=== PATIENT | female | born 1955 | race Caucasian/White ===

== ENCOUNTER 2018-05-03 17:57 | Emergency (ER) | payer MEDICAID ==
[~2018-05-03] VITALS: Ht 177.8 cm; Wt 68.2 kg
[2018-05-03 18:12] VITALS: Ht 177.8 cm; Wt 68.2 kg
[2018-05-03] MEDS ORDERED: CLARITIN 10 MG10 MG PO (18:14)
[2018-05-03 19:04] VITALS: BP 163/97
[2018-05-03] MEDS ORDERED: DOXYCYCLINE HY100 M2 PO (19:20)
[2018-05-03] MEDS ORDERED: TORADOL10 MG PO (19:20)
== END 2018-05-03 19:00 | disposition home or self-care (01) ==
LOC: D.ER 17:57
DX: T63.461A Toxic effect of venom of wasps, accidental (unintentional), initial encounter (principal); Z86.73 Personal history of transient ischemic attack (TIA), and cerebral infarction without residual deficits; I10 Essential (primary) hypertension

== ENCOUNTER 2020-05-18 23:05 | Inpatient (IN) | payer MEDICAID ==
[~2020-05-18] VITALS: Ht 170.2 cm; Wt 63.5 kg
[~2020-05-18 23:05] MED LIST: CLARITIN 10 MG10 MG PO; DOXYCYCLINE HY100 M2 PO; TORADOL10 MG PO
[2020-05-19 00:11] LABS: BASOPHILS 0.3 % (0-2); EOSINOPHILS 0.3 % (0-7); HEMATOCRIT 38.4 % (36.0-48.0); HEMOGLOBIN 13.4 g/dL (12-16); IMMATURE GRANULOCYTES 0.2 % (0-5); LYMPHOCYTE ABS# 1.94 10x3/uL (1.18-3.74); LYMPHOCYTES 16.5 % (15-50); MCH 31.2 pg (26.0-34.0); MCHC 34.9 g/dL (31.0-37.0); MCV 89.5 fL (80.0-100.0); MEAN PLATELET VOLUME 11.1 fL (7.4-10.4); MONOCYTES 8.9 % (2-11); NEUTROPHIL ABS# 8.67 10x3/uL (1.56-6.13); NEUTROPHILS 73.8 % (40-80); PLATELET COUNT 324 10x3/uL (130-400); RBC 4.29 10x6/uL (4.00-5.40); RDW 11.8 % (11.5-14.5); WBC 11.7 10x3/uL (4.8-10.8)
[2020-05-19 00:17] LABS: ANION GAP 14.8 mmol/L (8-16); CALCIUM 9.4 mg/dL (8.5-10.1); CARBON DIOXIDE 29.6 mmol/L (21.0-32.0); CREATININE - SERUM 2.7 mg/dL (0.6-1.3); POTASSIUM - SERUM 3.4 mmol/L (3.5-5.1)
[2020-05-19 00:22] VITALS: BP 113/87
[2020-05-19 00:40] LABS: ALBUMIN 3.9 g/dL (3.4-5.0); BILIRUBIN - TOTAL 0.42 mg/dL (0.2-1.3); C-REACTIVE PROTEIN 1.6 mg/dL (0.0-0.9); MAGNESIUM - SERUM 1.9 mg/dL (1.8-2.4); PROTEIN - SERUM 8.7 g/dL (6.4-8.2); THYROID STIMULATING HORMONE 1.89 uIU/mL (0.36-3.74)
[2020-05-19 00:53] LABS: TROPONIN-I 0.066 ng/mL (0.000-0.060)
[2020-05-19 02:14] LABS: BILIRUBIN NEGATIVE (NEGATIVE); KETONE NEGATIVE (NEGATIVE); NITRITE NEGATIVE (NEGATIVE); UROBILINOGEN NORMAL mg/dL (< 2)
[2020-05-19 02:17] LABS: BACTERIA MODERATE HPF (NONE SEEN); SQUAMOUS EPITHELIAL 0-5 HPF (0-4); WHITE CELLS - URINE 0-5 HPF (0-4)
[2020-05-19 02:21] LABS: UDS - AMPHET NEGATIVE QUAL (NEGATIVE); UDS - BARB NEGATIVE QUAL (NEGATIVE); UDS - BENZO POSITIVE QUAL (NEGATIVE); UDS - COCAINE NEGATIVE QUAL (NEGATIVE); UDS - OPIATE NEGATIVE QUAL (NEGATIVE); UDS - PCP NEGATIVE QUAL (NEGATIVE); UDS - THC POSITIVE QUAL (NEGATIVE)
[2020-05-19 02:53] VITALS: BP 157/82
[2020-05-19] MEDS ORDERED: MOBIC7.5 MG PO (03:43)
[2020-05-19] MEDS ORDERED: ZESTORETIC 20-1 EACH PO (03:43)
[2020-05-19] MEDS ORDERED: XANAX1 MG PO (03:44)
[2020-05-19] MEDS ORDERED: CELEXA40 MG PO (03:44)
[2020-05-19] MEDS ORDERED: SINGULAIR10 MG PO (03:45)
[2020-05-19] MEDS ORDERED: PRAVACHOL40 MG PO (03:45)
[2020-05-19] MEDS ORDERED: HYDROCORTISONE30 G9 TOPICAL (03:47)
[2020-05-19] MEDS ORDERED: ALBUTEROL SULF8.5 GM INH (03:47)
[2020-05-19] MEDS ORDERED: ALBUTEROL0.63 MG/3 INH (03:50)
[2020-05-19 04:00] VITALS: BP 140/72
--- NOTE | 2020-05-19 05:08 | NUR ---
I have reviewed this patient and I concur with the Shift Assessment completed by the Licensed Practical Nurse today this shift.
--- NOTE | 2020-05-19 05:49 | NUR ---
PT LAYING IN BED ON LEFT SIDE. PT GIVEN PRN PAIN MEDS FOR ABDOMINAL PAIN AND ZOFRAN FOR ACTIVE VOMITING. PT GIVEN ICE CHIPS. TELEMETRY PLACED ON PT. ASSESSMENT DONE BY CHARGE NURSE UPON ARRIVAL TO THE UNIT. PT EXPRESSES NO FURTHER NEEDS AT THIS TIME. WILL CONTINUE TO MONITOR
[2020-05-19 06:56] LABS: CALC OSMOLALITY 276 mosm/kg (275-300); CALCIUM 9.3 mg/dL (8.5-10.1); CARBON DIOXIDE 27.4 mmol/L (21.0-32.0); CHLORIDE - SERUM 90 mmol/L (98-107); CREATINE KINASE 88 UL (21-215); CREATININE - SERUM 2.2 mg/dL (0.6-1.3); GLUCOSE 122 mg/dL (74-106); MAGNESIUM - SERUM 2.2 mg/dL (1.8-2.4); PHOSPHOROUS 3.3 mg/dL (2.5-4.9); POTASSIUM - SERUM 3.7 mmol/L (3.5-5.1); SODIUM 128 mmol/L (136-145); UREA NITROGEN 65 mg/dL (7-18); eGFR NON AFRICAN AMERICAN 24 mL/min (90-120)
[2020-05-19 07:00] LABS: APTT 32.2 SECONDS (22.8-39.4); INR 1.19 (0.85-1.17)
[2020-05-19 08:07] LABS: BASOPHILS 0.2 % (0-2); EOSINOPHILS 0.2 % (0-7); HEMATOCRIT 33.4 % (36.0-48.0); HEMOGLOBIN 11.6 g/dL (12-16); IMMATURE GRANULOCYTES 0.1 % (0-5); LYMPHOCYTE ABS# 1.83 10x3/uL (1.18-3.74); MCH 31.4 pg (26.0-34.0); MCHC 34.7 g/dL (31.0-37.0); MCV 90.3 fL (80.0-100.0); MEAN PLATELET VOLUME 11.4 fL (7.4-10.4); MONOCYTES 8.2 % (2-11); NEUTROPHIL ABS# 8.64 10x3/uL (1.56-6.13); NEUTROPHILS 75.3 % (40-80); PLATELET COUNT 302 10x3/uL (130-400); RDW 11.7 % (11.5-14.5); WBC 11.5 10x3/uL (4.8-10.8)
[2020-05-19 08:57] VITALS: BP 122/86
[2020-05-19 12:40] VITALS: Ht 170.2 cm; Wt 63.5 kg
[2020-05-19 13:47] LABS: CKMB 2.6 U/L (0.0-3.6); CREATINE KINASE 88 UL (21-215); TROPONIN-I 0.067 ng/mL (0.000-0.060)
[2020-05-19 15:42] VITALS: BP 112/65
[2020-05-19 18:56] LABS: CKMB 2.5 U/L (0.0-3.6); CREATINE KINASE 88 UL (21-215); TROPONIN-I 0.027 ng/mL (0.000-0.060)
--- NOTE | 2020-05-19 19:40 | NUR ---
ASSESSMENT COMPLETE, PT A&O. PT SITTING UP IN BED WATCHING TV. RESPERATIONS EVEN ON RA. IV TO RIGHT ARM WITH NS INFUSING AT 125, IV SITE CLEAN AND DRY. PT DENIES PAIN OR NEEDS, BED LOW, CL IN REACH.
[2020-05-19 20:00] VITALS: BP 113/69
--- NOTE | 2020-05-20 03:14 | NUR ---
RESTING WITH EYES CLOSED, RESPERATIONS EVEN, NO S/S DISTRESS NOTED.
[2020-05-20 04:00] VITALS: BP 101/59
--- NOTE | 2020-05-20 04:24 | NUR ---
I have reviewed this patient and I concur with the Shift Assessment completed by the Licensed Practical Nurse today this shift.
--- NOTE | 2020-05-20 05:41 | NUR ---
IV TO RIGHT AC LEAKING, CATH REMOVED, TIP INTACT. RESITED PIV TO RIGHT FORERM, 22 GUAGE, PT TOLERATED WELL.
[2020-05-20 07:26] LABS: BASOPHILS 0.2 % (0-2); EOSINOPHILS 1.1 % (0-7); HEMATOCRIT 30.2 % (36.0-48.0); HEMOGLOBIN 10.2 g/dL (12-16); IMMATURE GRANULOCYTES 0.1 % (0-5); LYMPHOCYTE ABS# 1.74 10x3/uL (1.18-3.74); LYMPHOCYTES 17.7 % (15-50); MCH 31.2 pg (26.0-34.0); MCHC 33.8 g/dL (31.0-37.0); MCV 92.4 fL (80.0-100.0); MEAN PLATELET VOLUME 11.1 fL (7.4-10.4); MONOCYTES 9.4 % (2-11); NEUTROPHIL ABS# 7.04 10x3/uL (1.56-6.13); NEUTROPHILS 71.5 % (40-80); PLATELET COUNT 264 10x3/uL (130-400); RBC 3.27 10x6/uL (4.00-5.40); RDW 11.8 % (11.5-14.5); WBC 9.9 10x3/uL (4.8-10.8)
[2020-05-20 07:46] LABS: CALCIUM 8.8 mg/dL (8.5-10.1); CARBON DIOXIDE 28.6 mmol/L (21.0-32.0); CREATININE - SERUM 1.5 mg/dL (0.6-1.3); PHOSPHOROUS 2.4 mg/dL (2.5-4.9); POTASSIUM - SERUM 3.6 mmol/L (3.5-5.1)
[2020-05-20 08:04] VITALS: BP 117/73
--- NOTE | 2020-05-20 19:59 | NUR ---
IV TO RIGHT FOREARM LEAKING, IV CATH REMOVED, TIP INTACT. COVERED WITH 2X2 AND TAPE. WILL RESITE PIV SHORTLY. XANAX 1 TAB GIVEN AT PT REQUEST.
[2020-05-20 20:23] VITALS: BP 105/59
[2020-05-21 04:36] VITALS: BP 106/69
[2020-05-21 05:53] LABS: BASOPHILS 0.2 % (0-2); EOSINOPHILS 1.8 % (0-7); HEMATOCRIT 26.2 % (36.0-48.0); HEMOGLOBIN 8.8 g/dL (12-16); IMMATURE GRANULOCYTES 0.1 % (0-5); LYMPHOCYTE ABS# 2.52 10x3/uL (1.18-3.74); LYMPHOCYTES 30.7 % (15-50); MCH 31.1 pg (26.0-34.0); MCHC 33.6 g/dL (31.0-37.0); MCV 92.6 fL (80.0-100.0); MEAN PLATELET VOLUME 11.2 fL (7.4-10.4); MONOCYTES 8.4 % (2-11); NEUTROPHIL ABS# 4.83 10x3/uL (1.56-6.13); NEUTROPHILS 58.8 % (40-80); PLATELET COUNT 218 10x3/uL (130-400); RBC 2.83 10x6/uL (4.00-5.40); RDW 11.9 % (11.5-14.5); WBC 8.2 10x3/uL (4.8-10.8)
[2020-05-21 06:19] LABS: CALCIUM 8.1 mg/dL (8.5-10.1); CARBON DIOXIDE 27.7 mmol/L (21.0-32.0); CREATININE - SERUM 1.2 mg/dL (0.6-1.3); MAGNESIUM - SERUM 1.6 mg/dL (1.8-2.4); PHOSPHOROUS 2.2 mg/dL (2.5-4.9); POTASSIUM - SERUM 3.7 mmol/L (3.5-5.1)
[2020-05-21 09:36] VITALS: BP 102/61
--- NOTE | 2020-05-21 12:30 | NUR ---
Nutrition Follow-up: Tolerating PO intake. Ate majority of breakfast this AM. Denies N/V. Reports that last BM was ~10-12 days ago; noted Miralax was started yesterday. Diet: Regular No new wt; last wt: 140# (05/19) Labs noted: Na 135, BUN 26, GFR 48, Ca 8.1, PO4 2.2, Mg 1.6 Meds noted: Miralax, Pepcid, NS @ 150, electrolyte protocol -Need new wt. -RD will follow up within 5-7 days if pt still admitted.
[2020-05-21 17:35] VITALS: BP 102/70
--- NOTE | 2020-05-21 19:00 | NUR ---
REPORT GIVEN BY LEXA RENEE
[2020-05-21 19:58] VITALS: BP 95/59
--- NOTE | 2020-05-21 21:00 | NUR ---
ASSESSMENT COMPLETED. PT AMBULATES IN HER ROOM. SHE HAS JUST FINISHED A SHOWER. SHE WAS PLACED BACK ON TELE.PT HAD SOME ANXIETY ABOUT GETTING HERSELF TOGETHER BY THE TIME I LEFT THE ROOM SHE WAS IN BED AND SETTLED. PT HAS A CANE IN HER ROOM THAT SHE USES DUE TO A CVA SHE HAD IN THE PAST. SHE AMBULATED WELL.IV IN HER RIGHT WRIST. PER TELETECH PT IS IN NSR WITH A RATE OF 78
--- NOTE | 2020-05-21 21:11 | NUR ---
PT ASKED ME WHERE HER ATIVAN WAS. I TOLD HER THIS WAS PROBABLY A MED THAT WASN'T SCHEDULED TO GIVE AND SHE HAD TO ASK FOR IT WHEN SHE WANTED IT. ATIVAN WAS GIVEN PO
--- NOTE | 2020-05-22 02:05 | NUR ---
INI PT ROOM FOR ROUNDS. HER IV IS SOUNDING OFF. THIS WAS FIXED. SHE HAS BEEN GETTING UP ALOT TO GO TO THE BR. SHE HAS NO C/O OR NEEDS AT THIS TIME
--- NOTE | 2020-05-22 03:00 | NUR ---
IN PT ROOM TO GIVE IV MED. PT IS IN BED STATING SHE HASN'T SLEPT SINCE SHE GOT HER. SHE ALSO SAID SHE SLEPT ALL THE TIME AT HOME. SHE HAS NO C/O AT THIS TIME AND NO NEEDS
--- NOTE | 2020-05-22 04:00 | NUR ---
PT IS SLEEPING NOW. NO C/O OR NEEDS AT THIS TIME.
[2020-05-22 04:55] LABS: BASOPHILS 0.3 % (0-2); EOSINOPHILS 2.3 % (0-7); HEMATOCRIT 24.6 % (36.0-48.0); HEMOGLOBIN 8.1 g/dL (12-16); IMMATURE GRANULOCYTES 0.3 % (0-5); LYMPHOCYTE ABS# 2.68 10x3/uL (1.18-3.74); MCH 30.6 pg (26.0-34.0); MCHC 32.9 g/dL (31.0-37.0); MCV 92.8 fL (80.0-100.0); MEAN PLATELET VOLUME 11.2 fL (7.4-10.4); MONOCYTES 9.2 % (2-11); NEUTROPHIL ABS# 3.53 10x3/uL (1.56-6.13); NEUTROPHILS 49.9 % (40-80); PLATELET COUNT 197 10x3/uL (130-400); RBC 2.65 10x6/uL (4.00-5.40); RDW 12.1 % (11.5-14.5); WBC 7.1 10x3/uL (4.8-10.8)
[2020-05-22 05:16] LABS: ANION GAP 11.6 mmol/L (8-16); CALCIUM 8.2 mg/dL (8.5-10.1); CARBON DIOXIDE 24.9 mmol/L (21.0-32.0); CREATININE - SERUM 1.2 mg/dL (0.6-1.3); MAGNESIUM - SERUM 1.5 mg/dL (1.8-2.4); PHOSPHOROUS 2.4 mg/dL (2.5-4.9); POTASSIUM - SERUM 3.5 mmol/L (3.5-5.1)
[2020-05-22 08:14] VITALS: BP 103/58
[2020-05-22] MEDS ORDERED: MIRALAX17 GM PO (11:18)
[2020-05-22] MEDS ORDERED: PROTONIX40 MG PO (11:18)
--- NOTE | 2020-05-22 13:39 | NUR ---
RIGHT WRIST IV D/C, TIP INTACT. DISCHARGE INSTRUCTIONS GIVEN VERBALLY AND HANDOUTS PROVIDED. TAKEN DOWN TO ED ENTRANCE VIA WHEELCHAIR WITH TRANSPORT. REMAINS FREE FROM INJURY.
== END 2020-05-22 13:40 | disposition home or self-care (01) | DRG 683 ==
LOC: D.ER 23:05 → D.M2 05-19 02:20
PROVIDERS: Family Medicine; ADMIT Emergency Medicine; ATTEND Emergency Medicine
DX: N17.9 Acute kidney failure, unspecified (principal); E87.1 Hypo-osmolality and hyponatremia; T50.B95A Adverse effect of other viral vaccines, initial encounter; R11.2 Nausea with vomiting, unspecified; E87.6 Hypokalemia; R77.8 Other specified abnormalities of plasma proteins; J44.9 Chronic obstructive pulmonary disease, unspecified; F41.8 Other specified anxiety disorders; E78.5 Hyperlipidemia, unspecified; I10 Essential (primary) hypertension; Z86.73 Personal history of transient ischemic attack (TIA), and cerebral infarction without residual deficits